=== PATIENT | male | born 1955 | race Caucasian/White ===

== ENCOUNTER 2022-03-02 20:40 | Observation (INO) ==
[2022-03-02] MEDS ORDERED: MoRPHine SULFATE 4 MG/ML 1 ML CARP\\VIAL IV STA (20:51)
--- NOTE | 2022-03-02 20:58 | Emergency Department Note ---
Impression & Plan Chest pain, Headache ED Provider Note NAME: GRISELDA [id number] CHAU AGE: 66 SEX: M : 1955 ARRIVES VIA: Ambulance INFORMANT: Patient, EMS ED PROVIDER(S): Otto Bhatt DO CHIEF COMPLAINT: Chest pain HPI: The patient is a 66-year-old male who presented to the emergency department for an evaluation of chest pain. The patient has a history of coronary artery disease. He was seen in our facility for similar complaints. In December of this year he was taken to [facility]. At that time he did have a stent placed for coronary artery disease with occlusion. The patient does have a history of coronary bypass. He had chest pain yesterday. He started having worsening of his discomfort throughout the day today. He started noticing worsening with exertion. He also noticed nausea and a nonproductive cough. He also has had a headache. He states the symptoms have been ongoing since earlier today. He was given aspirin and nitroglycerin prior to arrival. He was also given Zofran. He states his symptoms are already mildly improved. He denies having any fever. ROS: See above HPI for pertinent positives & negatives. A total of 10 systems reviewed and were otherwise negative. PAST MEDICAL HISTORY: See Below PAST SURGICAL HISTORY: See Below FAMILY HISTORY: See Below SOCIAL HISTORY: See Below HOME MEDICATIONS: See Below ALLERGIES: See Below VITALS: See Below PHYSICAL EXAMINATION: GENERAL: Patient is awake alert in no acute distress patient is resting comfortably and showing no signs of anxiety EYES: The conjunctivae are clear. The pupils are round and reactive. EARS, NOSE, MOUTH AND THROAT: The nose is without any evidence of any deformity. NECK: The neck is nontender and supple. RESPIRATORY: Normal respiratory effort is noted there is no evidence of wheezing rhonchi or rales CARDIOVASCULAR: Regular rate and rhythm noted there no murmurs rubs or gallops normal S1 normal S2. GASTROINTESTINAL: The abdomen is soft. Abdomen is nontender. MUSCULOSKELETAL/EXTREMITIES: There is no evidence of gross deformity full range of motion is noted in the hips and shoulders. SKIN: There is no obvious evidence of any rash. There are no petechiae, pallor or cyanosis noted. NEUROLOGIC: Patient is awake alert and oriented x3 MEDICAL DECISION MAKING: The patient is a 66-year-old male who presented to the emergency department for an evaluation of chest discomfort. The patient has a history of coronary artery disease. He has a history of coronary artery bypass. He was seen in our facility at the end of December. At that time he was diagnosed with coronary artery disease and had a stent placed. He had return of pain yesterday which was brief but then return of pain today that did not resolve after the usual regiment of nitroglycerin. He was given aspirin and nitroglycerin prior to arrival. He was reevaluated multiple times. I discussed the patient's laboratory and radiographic studies with him. I also discussed the limitations of the emergency department work-up for chest pain with him. Ultimately I did discuss his case with the on-call [facility] hospitalist. They have agreed to evaluate the patient in the emergency department for further management and disposition. Triage Nursing notes reviewed. Prior medical records reviewed Vital Signs: reviewed and remarkable for no significant abnormalities Differential diagnosis: Cardiac ischemia, aortic dissection, pulmonary embolism, pneumothorax, pneumonia, pericarditis, myocarditis, esophageal rupture, GERD, cholecystitis, pancreatitis, musculoskeletal, as well as other pathologies. ER treatment provided: See below Diagnostics interpreted by me: ECG: EKG was obtained in the emergency department. My interpretation is sinus rhythm at 72 bpm. PACs were noted. There is no acute ST segment abnormalities noted. This was compared to a tracing from January 26, 2022. The ectopy is new otherwise no significant changes were noted. Cardiac Monitoring: An order was placed for continuous cardiac monitoring. The monitor shows a rate of 67 bpm with sinus rhythm. Laboratory studies: As stated above and show below. Imaging studies: See below Consultation(s): Dr. 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 LAD: mid vessel 100% occlusion. D1: patent. LCx: ostial 100% occlusion. RCA: proximal to mid vessel stents patent. Mild to moderate in stent restenosis similar to 2013 catheterization. SVG-OM-LCx: patent. Mild stenosis at LCx anastamosis and Moderate disease at ostial OM2 off LCx, but both <2mm diameter vessels. SVG-RPDA: patent. stents patent. ARAIZA-LAD: patent. " Hx of cholecystectomy Social History Smoking Status: Unknown if ever smoked Hx Alcohol Use: No Hx Substance Use: Yes Last Used Substance Other:: years ago Preferred Language: Israeli Communication Ability: Effective Director Of Psychiatry Required: No Beliefs That Will Affect Care: None Current Living Situation: Other Current Living Situation Comment: Alf Feels Safe at Home: Yes Assistive Devices: Cane and Denture - Upper Allergies Allergies Allergy/AdvReac Type Severity Reaction Status Date / Time Fish Containing Products AdvReac Intermediate VOMITING Verified 03/02/22 22:44 onion AdvReac Intermediate VOMITING Verified 03/02/22 22:44 tomato AdvReac Intermediate VOMITING Verified 03/02/22 22:44 Food AdvReac Intermediate ALLERGIC Uncoded 03/02/22 22:44 TO [place], CAUSES VOMITING Home Meds Home Medications Medication Instructions Recorded Confirmed aspirin 81 mg tablet,delayed 81 mg PO DAILY 01/05/22 03/02/22 release atorvastatin 40 mg tablet 40 mg PO QPM 01/05/22 03/02/22 buspirone 10 mg tablet 20 mg PO HS 01/05/22 03/02/22 ciclesonide 160 mcg/actuation 1 puff inhalation BID 01/05/22 03/02/22 aerosol inhaler (Alvesco) clopidogrel 75 mg tablet 75 mg PO DAILY 01/05/22 03/02/22 finasteride 5 mg tablet 5 mg PO DAILY 01/05/22 03/02/22 lisinopril 40 mg tablet 40 mg PO DAILY 01/05/22 03/02/22 nitroglycerin 0.4 mg sublingual 0.4 mg sublingual Q5M PRN Chest 01/05/22 03/02/22 tablet Pain isosorbide mononitrate 60 mg 60 mg PO DAILY 03/02/22 03/02/22 tablet,extended release 24 hr metoprolol tartrate 25 mg tablet 12.5 mg PO DAILY 03/02/22 03/02/22 Results & Data (ED) Vital Signs Vital Signs - 24 hr 03/02/22 21:08 03/02/22 21:08 03/02/22 21:53 Temperature 36.8 C Temperature Source Oral Pulse Rate Pulse Rate [Finger] 84 68 Pulse Rate from SpO2 Sensor Pulse Rhythm [Finger] Regular Regular Pulse Strength [Finger] Normal Normal Respiratory Rate 14 20 Respiratory Effort / Characteristics Non-Labored Non-Labored Respiratory Depth Normal Normal Respiratory Pattern Regular Blood Pressure Blood Pressure [Right Arm] 92/48 L 125/54 L Blood Pressure Mean Blood Pressure Mean [Right Arm] 62 77 Blood Pressure Position [Right Arm] Sitting Pulse Oximetry 97 96 Oxygen Delivery Method Room Air Room Air Sepsis Recent Fever Within 48 Hours No Sepsis New/Unexplained Change in Mental Status N/A Sepsis Action Taken by Nursing No Action Required 03/02/22 20:54 03/02/22 20:55 03/02/22 21:00 Temperature Temperature Source Pulse Rate 70 65 Pulse Rate [Finger] Pulse Rate from SpO2 Sensor 69 68 Pulse Rhythm [Finger] Pulse Strength [Finger] Respiratory Rate 23 19 Respiratory Effort / Characteristics Respiratory Depth Respiratory Pattern Blood Pressure 92/48 L Blood Pressure [Right Arm] Blood Pressure Mean 62 Blood Pressure Mean [Right Arm] Blood Pressure Position [Right Arm] Pulse Oximetry 95 94 Oxygen Delivery Method Sepsis Recent Fever Within 48 Hours Sepsis New/Unexplained Change in Mental Status Sepsis Action Taken by Nursing 03/02/22 21:30 03/02/22 21:55 03/02/22 21:55 Temperature Temperature Source Pulse Rate 76 71 Pulse Rate [Finger] Pulse Rate from SpO2 Sensor 75 71 Pulse Rhythm [Finger] Pulse Strength [Finger] Respiratory Rate 21 16 Respiratory Effort / Characteristics Respiratory Depth Respiratory Pattern Blood Pressure 125/54 L Blood Pressure [Right Arm] Blood Pressure Mean 77 Blood Pressure Mean [Right Arm] Blood Pressure Position [Right Arm] Pulse Oximetry 95 96 Oxygen Delivery Method Sepsis Recent Fever Within 48 Hours Sepsis New/Unexplained Change in Mental Status Sepsis Action Taken by Nursing 03/02/22 22:00 Temperature Temperature Source Pulse Rate 67 Pulse Rate [Finger] Pulse Rate from SpO2 Sensor 68 Pulse Rhythm [Finger] Pulse Strength [Finger] Respiratory Rate 20 Respiratory Effort / Characteristics Respiratory Depth Respiratory Pattern Blood Pressure Blood Pressure [Right Arm] Blood Pressure Mean Blood Pressure Mean [Right Arm] Blood Pressure Position [Right Arm] Pulse Oximetry 95 Oxygen Delivery Method Sepsis Recent Fever Within 48 Hours Sepsis New/Unexplained Change in Mental Status Sepsis Action Taken by [facility] Medications Current Medication List: was personally reviewed by me Laboratory Data Attestation: I reviewed the patient's lab results. Result diagrams: 03/02/22 20:58 03/02/22 20:58 Lab Results 03/02/22 03/02/22 Range/Units 20:58 20:58 WBC 12.61 H (4.8-10.8) K/ul RBC 3.83 L (4.63-6.08) M/uL Hgb 12.0 L (14.0-18.0) g/dl Hct 34.9 L (40.1-51.0) % MCV 91.1 (80.0-100.0) fL MCH 31.3 (25.0-34.0) pg MCHC 34.4 (32.0-36.0) g/dL RDW Std Deviation 41.0 (36.4-46.3) fL RDW Coeff of Bay 12.4 (11.5-14.5) % Plt Count 162 (130-400) K/uL MPV 9.6 (9.4-12.4) fL Immature Gran % (Auto) 0.6 % Neut % (Auto) 83.8 % Lymph % (Auto) 8.0 % [place] % (Auto) 6.8 % Eos % (Auto) 0.3 % Baso % (Auto) 0.5 % Neut # (Auto) 10.57 H (1.4-6.5) K/uL Lymph # (Auto) 1.01 L (1.2-3.4) K/uL [place] # (Auto) 0.86 H (0.24-0.82) K/uL Eos # (Auto) 0.04 (0-0.50) K/uL Baso # (Auto) 0.06 (0-0.2) K/uL Immature Gran # (Auto) 0.07 H (0.00-0.02) K/uL Sodium 135 L (136-145) mmol/L Potassium 3.8 (3.5-5.1) mmol/L Chloride 104 (98-107) mmol/L Carbon Dioxide 24 (21-32) mmol/L Anion Gap 7 (3-11) BUN 17 (6-23) mg/dl Creatinine 1.00 (0.6-1.4) mg/dl Est Cr Clr Drug Dosing 73.0 ml/min Est GFR ( Amer) 89.9 ml/min Est GFR (Non-Af Amer) 77.5 ml/min BUN/Creatinine Ratio 17.0 (10-20) Glucose 108 H (70-99(Fasting)) mg/dl Calcium 8.3 L (8.5-10.1) mg/dl Total Bilirubin 1.2 H (0.2-1.0) mg/dl AST 12 L (13-39) U/L ALT 10 (7-52) U/L Alkaline Phosphatase 98 (34-104) U/L Troponin I High Sens 14.3 (0-20) pg/ml Total Protein 6.8 (6.0-8.3) gm/dl Albumin 3.8 (3.4-5.0) gm/dl Globulin 3.0 (2.5-4.0) gm/dl Albumin/Globulin Ratio 1.3 (0.9-2) Lipase 22 (11-82) U/L Administered Medications Discontinued Medications Morphine Sulfate (Morphine Sulfate 4 Mg/Ml 1 Ml Carp\\Vial) 4 mg IV NOW STA Stop: 03/02/22 20:52 Last Admin: 03/02/22 21:05 Dose: 4 mg Documented By: ALAN Imaging Data Attestation: I personally reviewed and interpreted this imaging study as follows: My Impression: 1 view chest x-ray was obtained in the emergency department. My interpretation is no acute disease, cardiomegaly, no definite filtrate. Radiologist's Impression: Patient: GRISELDA RITCHIE [id number] (Male) : 53 Status: ER Date: 03/02/22 21:16 Room #: History: PT. REPORTS SEVERE HEADACHE FOR THE LAST FEW DAYS Slices: 66 Priors: Tech: MarleyNeeln @ [phone] Exams: CT HEAD Contrast: Accession Numbers: [id number] Referring Physician: OTTO BHATT Preliminary Findings Only See Final Report For Complete Findings CT HEAD: No intracranial hemorrhage. No hydrocephalus. Chronic appearing lacunar infarct within the right centrum semi-ovale. Small amount of fluid within the frontal and ethmoid sinuses. Mastoid air cells are clear. Radiologist: Roby Camacho MD Study ready at 21:19 and initial results transmitted at 21:39 Discharge Plan Visit Data Chief Complaint: Chest Pain ED Provider: Otto Bhatt Discharge Problem: Chest pain, Headache Patient Disposition: Being Evaluated by Hospitalist Forms Stand Alone Forms: My [facility] Prescriptions Prescriptions: No Action Alvesco 160 mcg/actuation HFA aerosol inhaler 1 puff inhalation BID aspirin 81 mg tablet,delayed release (DR/EC) 81 mg PO DAILY atorvastatin 40 mg tablet 40 mg PO QPM buspirone 10 mg tablet 20 mg PO HS clopidogrel 75 mg tablet 75 mg PO DAILY finasteride 5 mg tablet 5 mg PO DAILY lisinopril 40 mg tablet 40 mg PO DAILY nitroglycerin 0.4 mg tablet, sublingual 0.4 mg sublingual Q5M PRN (Reason: Chest Pain) Rx Instructions: do not exceed 3 doses per episode isosorbide mononitrate 60 mg Tablet Extended Release 24 Hr 60 mg PO DAILY metoprolol tartrate 25 mg Tablet 12.5 mg PO DAILY Referrals Referrals: Batool COREA [Primary Care Provider] - : Chest pain Qualifiers: Chest pain type: unspecified Qualified Code(s): R07.9 - Chest pain, unspecified Headache Qualifiers: Headache type: unspecified Headache chronicity pattern: unspecified pattern Intractability: not intractable Qualified Code(s): R51.9 - Headache, unspecified
[2022-03-02 21:10] LABS: Basophils # (auto) 0.06 K/uL (0-0.2); Basophils % (auto) 0.5 %; Eosinophils # (auto) 0.04 K/uL (0-0.50); Eosinophils % (auto) 0.3 %; Hematocrit (blood only) 34.9 % (40.1-51.0); Immature Granulocytes # (auto) 0.07 K/uL (0.00-0.02); Immature Granulocytes % (auto) 0.6 %; Lymphocytes # (auto) 1.01 K/uL (1.2-3.4); Mean Corpuscular Hemoglobin 31.3 pg (25.0-34.0); Mean Corpuscular Hgb Conc 34.4 g/dL (32.0-36.0); Mean Corpuscular Volume 91.1 fL (80.0-100.0); Mean Platelet Volume 9.6 fL (9.4-12.4); Monocytes # (auto) 0.86 K/uL (0.24-0.82); Monocytes % (auto) 6.8 %; Neutrophils # (auto) 10.57 K/uL (1.4-6.5); Neutrophils % (auto) 83.8 %; Platelet Count 162 K/uL (130-400); RDW Coefficient of Variation 12.4 % (11.5-14.5); Red Blood Count 3.83 M/uL (4.63-6.08); White Blood Count 12.61 K/ul (4.8-10.8)
[2022-03-02 21:36] LABS: Albumin Globulin Ratio 1.3 (0.9-2); Albumin Level 3.8 gm/dl (3.4-5.0); Bilirubin,Total 1.2 mg/dl (0.2-1.0); Calcium 8.3 mg/dl (8.5-10.1); Est GFR (African American) 89.9 ml/min; Est GFR (Non-African American) 77.5 ml/min; Potassium 3.8 mmol/L (3.5-5.1); Total Protein 6.8 gm/dl (6.0-8.3)
[2022-03-02 21:37] LABS: Troponin I High Sensitivity 14.3 pg/ml (0-20)
[2022-03-02] MEDS ORDERED: ALUMINUM/MAGNESIUM SUSP 30 ML UDC PO STA (22:51)
--- NOTE | 2022-03-03 00:57 | History & Physical Report ---
Date of Service March 03, 2022 Assessment & Plan (1) Chest pain: Plan: Chest pain/CAD/hypertension/status post CABG/status post stented coronary artery- The patient will be admitted to telemetry for serial cardiac enzymes, serial EKG's, cardiac rhythm monitoring and a 2-D echocardiogram with Dopplers. Continue aspirin 81 mg daily, clopidogrel 75 mg daily, isosorbide mononitrate 60 mg daily, lisinopril 40 mg daily, metoprolol tartrate 12.5 mg p.o. daily and nitroglycerin sublingual as as needed Consult cardiology Dr. Morales (2) Coronary artery disease: Plan: See above (3) Hypertension: Plan: See above (4) Hyperlipidemia: Plan: Continue atorvastatin 40 mg every evening History of Present Illness Chief Complaint: The patient presents to the emergency department with complaint of chest pain that began earlier in the day today, unrelieved by nitroglycerin sublingual's x2 Primary Care Provider: ANMOL Renae The patient is a 66-year-old male with a past medical history including CAD, recent stent placement on 01/26/2022, recurrent angina status post CABG, prostate cancer, hyperlipidemia, hypertension, MRSA and nonsustained V. tach. He reports that his chest pain was not significantly improved by nitroglycerin sublingual's at the residential, but did have improvement in the emergency department this yair luna. Allergies Allergy/AdvReac Type Severity Reaction Status Date / Time Fish Containing Products AdvReac Intermediate VOMITING Verified 03/02/22 22:44 onion AdvReac Intermediate VOMITING Verified 03/02/22 22:44 tomato AdvReac Intermediate VOMITING Verified 03/02/22 22:44 Food AdvReac Intermediate ALLERGIC Uncoded 03/02/22 22:44 TO [place], CAUSES VOMITING Home Medications Medication Instructions Recorded Confirmed Type aspirin 81 mg tablet,delayed 81 mg PO DAILY 01/05/22 03/02/22 History release atorvastatin 40 mg tablet 40 mg PO QPM 01/05/22 03/02/22 History buspirone 10 mg tablet 20 mg PO HS 01/05/22 03/02/22 History ciclesonide 160 mcg/actuation 1 puff inhalation BID 01/05/22 03/02/22 History aerosol inhaler (Alvesco) clopidogrel 75 mg tablet 75 mg PO DAILY 01/05/22 03/02/22 History finasteride 5 mg tablet 5 mg PO DAILY 01/05/22 03/02/22 History lisinopril 40 mg tablet 40 mg PO DAILY 01/05/22 03/02/22 History nitroglycerin 0.4 mg sublingual 0.4 mg sublingual Q5M PRN Chest 01/05/22 03/02/22 History tablet Pain isosorbide mononitrate 60 mg 60 mg PO DAILY 03/02/22 03/02/22 History tablet,extended release 24 hr metoprolol tartrate 25 mg tablet 12.5 mg PO DAILY 03/02/22 03/02/22 History Past Med/Surg History Medical History Coronary artery disease "CABG 1999: ARAIZA-LAD, SVG-RPDA, SVG-LCx PCI SVG-RPLB 2002 PCI with BMS SVG-RPLB (in SVG) 05/2013 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 LAD: mid vessel 100% occlusion. D1: patent. LCx: ostial 100% occlusion. RCA: proximal to mid vessel stents patent. Mild to moderate in stent restenosis similar to 2013 catheterization. SVG-OM-LCx: patent. Mild stenosis at LCx anastamosis and Moderate disease at ostial OM2 off LCx, but both <2mm diameter vessels. SVG-RPDA: patent. stents patent. ARAIZA-LAD: patent. " Hx of cholecystectomy Social History Smoking Status: Unknown if ever smoked Hx Alcohol Use: No Hx Substance Use: Yes Last Used Substance Other:: years ago Preferred Language: Indian Communication Ability: Effective Statement Distribution Clerk Required: No Beliefs That Will Affect Care: None Current Living Situation: Other Current Living Situation Comment: Longterm Feels Safe at Home: Yes Assistive Devices: Cane and Denture - Upper Review of Systems Review of Systems: The patient denies palpitations, shortness of breath, dyspnea on exertion, cough, lower extremity swelling, sore throat, fevers, chills, sweats, weight change, fatigue, nausea, vomiting, diarrhea , constipation, abdominal pain, pelvic pain, blood in urine or stool, dysuria, urinary frequency or urgency, lightheadedness, dizziness, headache, memory loss, loss of consciousness, rash, abnormal bruising or bleeding, imbalance, focal or generalized weakness, numbness or tingling in arms or legs, generalized arthralgias or myalgias, back or neck pain, or night sweats. The review of systems is otherwise negative other than for that already noted above, and at least 10 systems have been reviewed. Physical Exam Physical Exam: The patient is awake, alert and oriented 3, well developed and well nourished, normocephalic and atraumatic, lying in bed and in no acute distress. HEENT--PERRL, EOMI, mucous membranes and oropharynx dry. Neck--supple. No JVD. No bruits. Thyroid normal, trachea midline, no adenopathy. Heart--normal S1 and S2. No murmurs, rubs or gallops. Lungs--clear bilaterally, no respiratory distress, no accessory muscle use. Abdomen--normal bowel sounds and soft. Nontender. Nondistended, no hernias or masses, no organomegaly. Extremities--no cyanosis or clubbing. No edema. Dermatologic--normal skin turgor, normal color, no abnormal lymph nodes, no rash. Neurologic--cranial nerves II through XII grossly intact. Rheumatologic--normal range of motion. Psychiatric--normal affect. Results & Data Results & Data ([facility]) Vital Signs (Past 12 Hours) Vital Signs Temp Pulse Pulse Resp BP BP Pulse Ox 03/02/22 22:00 67 20 95 03/02/22 21:55 71 16 96 03/02/22 21:55 125/54 L 03/02/22 21:30 76 21 95 03/02/22 21:00 65 19 94 03/02/22 20:55 70 23 95 03/02/22 20:54 92/48 L 03/02/22 21:53 68 20 125/54 L 96 03/02/22 21:08 36.8 C 84 14 92/48 L 97 O2 Del Method 03/02/22 22:00 03/02/22 21:55 03/02/22 21:55 03/02/22 21:30 03/02/22 21:00 03/02/22 20:55 03/02/22 20:54 03/02/22 21:53 Room Air 03/02/22 21:08 Room Air Laboratory Results Laboratory Results WBC 12.61 K/ul (4.8-10.8) H 03/02/22 20:58 RBC 3.83 M/uL (4.63-6.08) L 03/02/22 20:58 Hgb 12.0 g/dl (14.0-18.0) L 03/02/22 20:58 Hct 34.9 % (40.1-51.0) L 03/02/22 20:58 MCV 91.1 fL (80.0-100.0) 03/02/22 20:58 MCH 31.3 pg (25.0-34.0) 03/02/22 20:58 MCHC 34.4 g/dL (32.0-36.0) 03/02/22 20:58 RDW Std Deviation 41.0 fL (36.4-46.3) 03/02/22 20:58 RDW Coeff of Bay 12.4 % (11.5-14.5) 03/02/22 20:58 Plt Count 162 K/uL (130-400) 03/02/22 20:58 MPV 9.6 fL (9.4-12.4) 03/02/22 20:58 Immature Gran % (Auto) 0.6 % 03/02/22 20:58 Neut % (Auto) 83.8 % 03/02/22 20:58 Lymph % (Auto) 8.0 % 03/02/22 20:58 [place] % (Auto) 6.8 % 03/02/22 20:58 Eos % (Auto) 0.3 % 03/02/22 20:58 Baso % (Auto) 0.5 % 03/02/22 20:58 Neut # (Auto) 10.57 K/uL (1.4-6.5) H 03/02/22 20:58 Lymph # (Auto) 1.01 K/uL (1.2-3.4) L 03/02/22 20:58 [place] # (Auto) 0.86 K/uL (0.24-0.82) H 03/02/22 20:58 Eos # (Auto) 0.04 K/uL (0-0.50) 03/02/22 20:58 Baso # (Auto) 0.06 K/uL (0-0.2) 03/02/22 20:58 Immature Gran # (Auto) 0.07 K/uL (0.00-0.02) H 03/02/22 20:58 Sodium 135 mmol/L (136-145) L 03/02/22 20:58 Potassium 3.8 mmol/L (3.5-5.1) 03/02/22 20:58 Chloride 104 mmol/L (98-107) 03/02/22 20:58 Carbon Dioxide 24 mmol/L (21-32) 03/02/22 20:58 Anion Gap 7 (3-11) 03/02/22 20:58 BUN 17 mg/dl (6-23) 03/02/22 20:58 Creatinine 1.00 mg/dl (0.6-1.4) 03/02/22 20:58 Est Cr Clr Drug Dosing 73.0 ml/min 03/02/22 20:58 Est GFR ( Amer) 89.9 ml/min 03/02/22 20:58 Est GFR (Non-Af Amer) 77.5 ml/min 03/02/22 20:58 BUN/Creatinine Ratio 17.0 (10-20) 03/02/22 20:58 Glucose 108 mg/dl (70-99(Fasting)) H 03/02/22 20:58 Calcium 8.3 mg/dl (8.5-10.1) L 03/02/22 20:58 Total Bilirubin 1.2 mg/dl (0.2-1.0) H 03/02/22 20:58 AST 12 U/L (13-39) L 03/02/22 20:58 ALT 10 U/L (7-52) 03/02/22 20:58 Alkaline Phosphatase 98 U/L (34-104) 03/02/22 20:58 Troponin I High Sens 14.3 pg/ml (0-20) 03/02/22 20:58 Total Protein 6.8 gm/dl (6.0-8.3) 03/02/22 20:58 Albumin 3.8 gm/dl (3.4-5.0) 03/02/22 20:58 Globulin 3.0 gm/dl (2.5-4.0) 03/02/22 20:58 Albumin/Globulin Ratio 1.3 (0.9-2) 03/02/22 20:58 Lipase 22 U/L (11-82) 03/02/22 20:58 SARS-CoV-2, RNA, NAAT NEGATIVE (NEGATIVE) 03/02/22 23:25 Code Status & VTE Plan Code Status Full code VTE Prophylaxis Plan VTE Prophylaxis will be ordered: Yes PG Care Time/CCT Total # of Minutes Spent Total Time Spent with Patient: Total time spent is greater than 50% in coordination of care (as documented) at patient's floor/unit and/or counseling patient: Coding Level of Care Code INT OBSERVATION CARE 70M LVL 3 Diagnoses Chest pain R07.9 Chest pain type: unspecified Coronary artery disease I25.10 Hypertension I10 Hyperlipidemia E78.5 (1) Chest pain Chest pain type: unspecified Qualified Code(s): R07.9 - Chest pain, unspecified
[2022-03-03] MEDS ORDERED: ACETAMINOPHEN 325 MG TAB PO PRN (02:55)
[2022-03-03] MEDS ORDERED: ONDANSETRON INJ 2 MG/ML 2 ML VIAL IV PRN (02:55)
[2022-03-03] MEDS ORDERED: NITROGLYCERIN SL 0.4 MG/TAB TAB SL PRN (02:55)
[2022-03-03 06:46] LABS: Basophils # (auto) 0.04 K/uL (0-0.2); Basophils % (auto) 0.5 %; Eosinophils # (auto) 0.02 K/uL (0-0.50); Eosinophils % (auto) 0.2 %; Hematocrit (blood only) 34.4 % (40.1-51.0); Hemoglobin 11.6 g/dl (14.0-18.0); Immature Granulocytes # (auto) 0.02 K/uL (0.00-0.02); Immature Granulocytes % (auto) 0.2 %; Lymphocytes # (auto) 1.28 K/uL (1.2-3.4); Lymphocytes % (auto) 15.9 %; Mean Corpuscular Hemoglobin 31.3 pg (25.0-34.0); Mean Corpuscular Hgb Conc 33.7 g/dL (32.0-36.0); Mean Corpuscular Volume 92.7 fL (80.0-100.0); Mean Platelet Volume 9.7 fL (9.4-12.4); Monocytes # (auto) 0.77 K/uL (0.24-0.82); Monocytes % (auto) 9.6 %; Neutrophils # (auto) 5.93 K/uL (1.4-6.5); Neutrophils % (auto) 73.6 %; Platelet Count 145 K/uL (130-400); RDW Coefficient of Variation 12.6 % (11.5-14.5); RDW Standard Deviation 42.8 fL (36.4-46.3); Red Blood Count 3.71 M/uL (4.63-6.08); White Blood Count 8.06 K/ul (4.8-10.8)
[2022-03-03 07:14] LABS: Albumin Globulin Ratio 1.3 (0.9-2); Albumin Level 3.5 gm/dl (3.4-5.0); BUN Creatinine Ratio 15.5 (10-20); Bilirubin,Total 1.4 mg/dl (0.2-1.0); Calcium 7.9 mg/dl (8.5-10.1); Creatinine Clr Calc Pharmacy 66.4 ml/min; Est GFR (African American) 80.1 ml/min; Est GFR (Non-African American) 69.1 ml/min; Globulin 2.8 gm/dl (2.5-4.0); Potassium 3.6 mmol/L (3.5-5.1); Total Protein 6.3 gm/dl (6.0-8.3)
--- NOTE | 2022-03-03 07:36 | CT Scan Report ---
HEAD CT NONCONTRAST CT DOSE: 614.27 mGy.cm HISTORY: headache TECHNIQUE: Multiaxial CT images of the head were performed without the use of intravenous contrast. A utomated exposure control was utilized for this study. A dose lowering technique was utilized adheri ng to the principles of ALARA. Comparison: Head CT 03/12/2015. Findings: Mild mucosal thickening within the ethmoid air cells, unchanged. The mastoid air cells are clear. The calvarium and skull base are intact. The ventricles and sulci are within normal limits. Th ere is no mass, hematoma, midline shift, or acute infarct. There is an old small right periventricula r infarct, unchanged. Impression: No significant change compared to the prior study. No acute intracranial abnormality. ACT 112: Negative or not required by law. Electronically signed by: Mehdi Escobedo M.D. 03/03/2022 7:35 AM
--- NOTE | 2022-03-03 08:28 | Communication Note ---
Date of Service: March 03, 2022
--- NOTE | 2022-03-03 08:32 | XRay Report ---
XR chest 1V portable CLINICAL HISTORY: Atypical chest pain. COMPARISON STUDY: Chest radiograph and chest CT January 14, 2017. FINDINGS: Median sternotomy wires and mediastinal surgical clips are noted. Cardiomegaly is unchanged . No evidence for pulmonary edema. No consolidation to suggest pneumonia. No pneumothorax or pleural effusion is present. Emphysema is better depicted on prior chest CT. IMPRESSION: No acute cardiopulmonary findings. No change in appearance of the chest. ACT 112: Negative or not required by law. Electronically signed by: Edmundo Hanson M.D. 03/03/2022 8:30 AM
[2022-03-03] MEDS ORDERED: FINASTERIDE 5 MG TAB PO SCH (09:00)
[2022-03-03] MEDS ORDERED: ISOSORBIDE MONO EXTENDED REL 60 MG TABCR PO SCH (09:00)
[2022-03-03] MEDS ORDERED: FLUTICASONE FUROATE 100MCG 14 PUFFS/INHALER INH SCH (09:00)
[2022-03-03] MEDS ORDERED: METOPROLOL TARTRATE 25 MG TAB PO SCH (09:00)
[2022-03-03] MEDS ORDERED: CLOPIDOGREL BISULFATE 75 MG TAB PO SCH (09:00)
[2022-03-03] MEDS ORDERED: ASPIRIN 81 MG ECTAB PO SCH (09:00)
[2022-03-03] MEDS ORDERED: lisinopril 40 MG TAB PO SCH (09:00)
--- NOTE | 2022-03-03 11:02 | Cardiology Consultation ---
Date of Consultation March 03, 2022 Assessment & Plan (1) Chest pain: (2) Coronary artery disease: Plan 1. Chest pain: His description of symptoms is certainly concerning for recurrent angina. However, he had a prolonged episode of discomfort without any rise in cardiac biomarkers. Therefore, this does not seem to represent coronary insufficiency or ischemia. He resolved with some narcotics eventually. No recurrence. Similar symptoms did resolve after recent percutaneous intervention of his vein graft. I suppose it is possible that he has multiple allergies for his chest discomfort. At this point I would not advocate any change in his medical therapy or any additional ischemic evaluation. 2. Coronary disease: Long history of coronary artery disease and multiple interventions mainly involving the vein graft to the posterolateral branch. Possible this territory is infarcted. There may be some bertha-infarct ischemia which produces symptoms at times. Nonetheless, he should continue aggressive secondary prevention which currently includes aspirin, high-dose atorvastatin and clopidogrel. With his history of myocardial infarction he should continue metoprolol. Higher doses have been tried previously which resulted in symptoms and bradycardia. History of Present Illness Reason for Consultation: Chest pain Requesting Physician: Sydney Attending Physician: Michael Shah DO History of Present Illness The patient is a 66-year-old gentleman with an extensive history of coronary disease having previously undergone surgical revascularization in 1999 as well as multiple percutaneous interventions including stenting of a vein graft to the PDA at our facility in late December of this year. Leading up to that intervention the patient had been having symptoms of exertional chest discomfort for few months. This occurred at rest and with exertion and was often relieved by nitroglycerin. He states that since his most recent intervention he has not had his symptoms of chest, jaw all or arm discomfort. He has been more active in actually walking in the yd. Several days ago the patient began to experience a significant headache. This did not resolve and yesterday he had some nausea and vomiting. He claims to have subjective fevers and chills and eventually developed some form of substernal chest discomfort with his typical radiation to jaw and arm. This lasted several hours and was unresponsive to nitroglycerin administered at the facility. EMS was eventually called in in route the patient was administered morphine and nitroglycerin which improved his symptoms. Additional interventions in the emergency room eventually resolved his symptoms. This morning he is feeling well. He does not have a headache, nausea or chest pain. Allergies Allergy/AdvReac Type Severity Reaction Status Date / Time Fish Containing Products AdvReac Intermediate VOMITING Verified 03/02/22 22:44 onion AdvReac Intermediate VOMITING Verified 03/02/22 22:44 tomato AdvReac Intermediate VOMITING Verified 03/02/22 22:44 Food AdvReac Intermediate ALLERGIC Uncoded 03/02/22 22:44 TO [place], CAUSES VOMITING Home Medications Medication Instructions Recorded Confirmed Type aspirin 81 mg tablet,delayed 81 mg PO DAILY 01/05/22 03/02/22 History release atorvastatin 40 mg tablet 40 mg PO QPM 01/05/22 03/02/22 History buspirone 10 mg tablet 20 mg PO HS 01/05/22 03/02/22 History ciclesonide 160 mcg/actuation 1 puff inhalation BID 01/05/22 03/02/22 History aerosol inhaler (Alvesco) clopidogrel 75 mg tablet 75 mg PO DAILY 01/05/22 03/02/22 History finasteride 5 mg tablet 5 mg PO DAILY 01/05/22 03/02/22 History lisinopril 40 mg tablet 40 mg PO DAILY 01/05/22 03/02/22 History nitroglycerin 0.4 mg sublingual 0.4 mg sublingual Q5M PRN Chest 01/05/22 03/02/22 History tablet Pain isosorbide mononitrate 60 mg 60 mg PO DAILY 03/02/22 03/02/22 History tablet,extended release 24 hr metoprolol tartrate 25 mg tablet 12.5 mg PO DAILY 03/02/22 03/02/22 History Patient History Medical History Coronary artery disease "CABG 1999: ARAIZA-LAD, SVG-RPDA, SVG-LCx PCI SVG-RPLB 2002 PCI with BMS SVG-RPLB (in SVG) 05/2013 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 LAD: mid vessel 100% occlusion. D1: patent. LCx: ostial 100% occlusion. RCA: proximal to mid vessel stents patent. Mild to moderate in stent restenosis similar to 2013 catheterization. SVG-OM-LCx: patent. Mild stenosis at LCx anastamosis and Moderate disease at ostial OM2 off LCx, but both <2mm diameter vessels. SVG-RPDA: patent. stents patent. ARIAZA-LAD: patent. " Hx of cholecystectomy Social History Smoking Status: Former smoker Hx Alcohol Use: Yes (previous) Hx Substance Use: Yes (pt reports former use as a young adult) Last Used Substance Other:: years ago Preferred Language: Korean Communication Ability: Effective Armorer Technician Required: No Beliefs That Will Affect Care: None Current Living Situation: Other Current Living Situation Comment: Long-Term Feels Safe at Home: Yes Safety Concerns: Feels Safe At This Time Assistive Devices: Denture - Upper and Glasses Review of Systems Review of Systems: Per HPI. Recently he has been ambulatory without symptoms. No limiting dyspnea. No orthopnea. Physical Exam Physical Exam: The patient is alert and oriented. Mood and affect appeared normal. He answered all questions appropriately. HEENT: Pupils are equal and reactive to light and accommodation. Extraocular movements are intact. The sclerae are anicteric. Neuro: Cranial nerves intact Chest: Well-healed sternotomy scar Lungs: Clear to auscultation bilaterally. He has good air movement without use of accessory muscles. No rales wheezes or rhonchi. Cardiac: Heart demonstrates a regular rate and rhythm. Normal S1 and S2. No murmurs on examination. Pulses: The patient has palpable radial pulses bilaterally that are equal in i ntensity Extremities: There was no evidence of hypoperfusion. There is no cyanosis or clubbing. There is no edema. Skin: I did not appreciate any rashes on examination today. Results & Data ([facility]) Vital Signs (Past 12 Hours) Vital Signs Temp Pulse Pulse Resp BP BP Pulse Ox 03/03/22 07:37 36.8 C 65 20 104/53 L 92 03/03/22 07:06 65 03/03/22 06:48 37 C 03/03/22 02:55 99 H 03/03/22 02:45 37.6 C H 87 20 159/73 H 94 03/03/22 02:29 84 14 121/74 96 O2 Del Method 03/03/22 07:37 Room Air 03/03/22 07:06 03/03/22 06:48 03/03/22 02:55 03/03/22 02:45 Room Air 03/03/22 02:29 Room Air Laboratory Results Abnormal Lab Results 03/02/22 03/02/22 03/02/22 20:58 20:58 23:25 WBC 12.61 H RBC 3.83 L Hgb 12.0 L Hct 34.9 L MCV 91.1 MCH 31.3 MCHC 34.4 RDW Std Deviation 41.0 RDW Coeff of Bay 12.4 Plt Count 162 MPV 9.6 Immature Gran % (Auto) 0.6 Neut % (Auto) 83.8 Lymph % (Auto) 8.0 Mckenzie % (Auto) 6.8 Eos % (Auto) 0.3 Baso % (Auto) 0.5 Neut # (Auto) 10.57 H Lymph # (Auto) 1.01 L Mckenzie # (Auto) 0.86 H Eos # (Auto) 0.04 Baso # (Auto) 0.06 Immature Gran # (Auto) 0.07 H Sodium 135 L Potassium 3.8 Chloride 104 Carbon Dioxide 24 Anion Gap 7 BUN 17 Creatinine 1.00 Est Cr Clr Drug Dosing 73.0 Est GFR ( Amer) 89.9 Est GFR (Non-Af Amer) 77.5 BUN/Creatinine Ratio 17.0 Glucose 108 H Calcium 8.3 L Total Bilirubin 1.2 H AST 12 L ALT 10 Alkaline Phosphatase 98 Troponin I High Sens 14.3 Total Protein 6.8 Albumin 3.8 Globulin 3.0 Albumin/Globulin Ratio 1.3 Lipase 22 Nasal Screen MRSA (PCR) SARS-CoV-2, RNA, NAAT NEGATIVE 03/03/22 03/03/22 03/03/22 04:00 05:54 05:54 WBC 8.06 RBC 3.71 L Hgb 11.6 L Hct 34.4 L MCV 92.7 MCH 31.3 MCHC 33.7 RDW Std Deviation 42.8 RDW Coeff of Bay 12.6 Plt Count 145 MPV 9.7 Immature Gran % (Auto) 0.2 Neut % (Auto) 73.6 Lymph % (Auto) 15.9 Mckenzie % (Auto) 9.6 Eos % (Auto) 0.2 Baso % (Auto) 0.5 Neut # (Auto) 5.93 Lymph # (Auto) 1.28 Mckenzie # (Auto) 0.77 Eos # (Auto) 0.02 Baso # (Auto) 0.04 Immature Gran # (Auto) 0.02 Sodium 135 L Potassium 3.6 Chloride 103 Carbon Dioxide 28 Anion Gap 4 BUN 17 Creatinine 1.10 Est Cr Clr Drug Dosing 66.4 Est GFR ( Amer) 80.1 Est GFR (Non-Af Amer) 69.1 BUN/Creatinine Ratio 15.5 Glucose 100 H Calcium 7.9 L Total Bilirubin 1.4 H AST 12 L ALT 10 Alkaline Phosphatase 90 Troponin I High Sens Total Protein 6.3 Albumin 3.5 Globulin 2.8 Albumin/Globulin Ratio 1.3 Lipase Nasal Screen MRSA (PCR) Negative SARS-CoV-2, RNA, NAAT 03/03/22 05:54 WBC RBC Hgb Hct MCV MCH MCHC RDW Std Deviation RDW Coeff of Bay Plt Count MPV Immature Gran % (Auto) Neut % (Auto) Lymph % (Auto) Mckenzie % (Auto) Eos % (Auto) Baso % (Auto) Neut # (Auto) Lymph # (Auto) Mckenzie # (Auto) Eos # (Auto) Baso # (Auto) Immature Gran # (Auto) Sodium Potassium Chloride Carbon Dioxide Anion Gap BUN Creatinine Est Cr Clr Drug Dosing Est GFR ( Amer) Est GFR (Non-Af Amer) BUN/Creatinine Ratio Glucose Calcium Total Bilirubin AST ALT Alkaline Phosphatase Troponin I High Sens 18.9 D Total Protein Albumin Globulin Albumin/Globulin Ratio Lipase Nasal Screen MRSA (PCR) SARS-CoV-2, RNA, NAAT Diagnostic Findings Head CT does not demonstrate any acute intracranial findings Chest x-ray the time admission did not reveal any acute cardiopulmonary disease Cardiac catheterization performed 01/26/2022 revealed diffuse left main disease, 95% mid LAD lesion with competitive flow, 100% occlusion of the circumflex and 100% distal chronic occlusion of the right coronary artery. Araiza to LAD and saphenous vein graft to the circumflex were widely patent. Saphenous vein graft to the right coronary artery had a focal 80 90% stenosis which was stented. Lexiscan perfusion study performed 02/06/2020: Scar in the circumflex distribution. Lateral wall hypokinesis with a gated ejection fraction of 55%. ECG Additional Comments: EKG obtained the time admission was normal sinus rhythm. No acute ST or T-wave changes. No evidence of old WA. PG Care Time/CCT Total # of Minutes Spent Total Time Spent with Patient: Total time spent is greater than 50% in coordination of care (as documented) at patient's floor/unit and/or counseling patient: Coding Level of Care Code INT OBSERVATION CARE 70M LVL 3 Diagnoses Chest pain R07.9 Chest pain type: unspecified Coronary artery disease I25.10 (1) Chest pain Chest pain type: unspecified Qualified Code(s): R07.9 - Chest pain, unspecified
--- NOTE | 2022-03-03 11:46 | Electrocardiogram Report ---
Test Reason : Blood Pressure : / mmHG Vent. Rate : 068 BPM Atrial Rate : 068 BPM P-R Int : 136 ms QRS Dur : 078 ms QT Int : 420 ms P-R-T Axes : -24 -13 070 degrees QTc Int : 446 ms Poor data quality, interpretation may be adversely affected Normal sinus rhythm Normal ECG When compared with ECG of 26-JAN-2022 11:43, Criteria for Inferior infarct are no longer Present Confirmed by Alex Medrano ([id number]) on 03/03/2022 11:45:58 AM Referred By: REFERRED SELF Confirmed By:Jose Medrano
--- NOTE | 2022-03-03 12:54 | XCELERA ---
[id number]
--- NOTE | 2022-03-03 13:40 | Discharge Summary ---
Date of Service March 03, 2022 Admission HPI Per Admitting Provider The patient is a 66-year-old male with a past medical history including CAD, recent stent placement on 01/26/2022, recurrent angina status post CABG, prostate cancer, hyperlipidemia, hypertension, MRSA and nonsustained V. tach. He reports that his chest pain was not significantly improved by nitroglycerin sublingual's at the longterm, but did have improvement in the emergency department this evening. Principal Diagnosis Chest pain Discharge Exam GENERAL: A&Ox3. NAD. HEENT: PERRL, EOMI. Moist mucous membranes. NECK: No JVD. No lymphadenopathy. CHEST/LUNGS: CTAB A/P. No crackles, wheezes, rales, rhonchi. HEART: RRR. No m/g/r. No carotid bruits. ABDOMEN: NT/ND, soft. BS+ x4 EXTREMITIES: No cyanosis, no clubbing, no edema SKIN: Warm and dry. No rashes or lesions. PSYCHIATRIC: Euthymic affect, no SI, no pressured speech, no hallucinations NEUROLOGIC: No FND. CN II-XII grossly intact. Discharge Data Allergies Allergy/AdvReac Type Severity Reaction Status Date / Time Fish Containing Products AdvReac Intermediate VOMITING Verified 03/02/22 22:44 onion AdvReac Intermediate VOMITING Verified 03/02/22 22:44 tomato AdvReac Intermediate VOMITING Verified 03/02/22 22:44 Food AdvReac Intermediate ALLERGIC Uncoded 03/02/22 22:44 TO EMIGRANT GAP, CAUSES VOMITING Consultations 03/02/22 22:56 ED Decision to Admit Stat 03/03/22 02:35 Consult Cardiology Routine Ordered Studies 03/02/22 20:51 CT head/brain wo con Urgent Hospital Course (1) Chest pain: 66-year-old male with a past medical history including CAD, recent stent placement on 01/26/2022, recurrent angina status post CABG, prostate cancer, hyperlipidemia, hypertension, MRSA who presented due to chest pain concerning for possible cardiac involvement. Chest pain/CAD/hypertension/status post CABG/status post stented coronary artery - Patient's description of symptoms certainly concerning for angina but could have a component of anxiety as well -- did also report some epigastric GI discomfort after as well, which resolved with milk of magnesia - Cardiac enzymes, serialEKG's, cardiac rhythm monitoring all reassuring during admission - Had Echocardiogram showing normal LV function, no wall motion abnormalities, moderately dilated left atrium, mild mitral & aortic regurg, normal RV systolic pressure - Hospital course reassuring that even if this was anginal, there was no ischemia -- pain did resolve after morphine dose in ED - Cardiology consult in agreement and recommending continuing with current medical therapy w/o need for ischemic evaluation - If symptoms are persistent can consider stress testing as there may be some smaller coronary artery blockages that only become symptomatic with exertion and/or stress - Continue aspirin 81 mg daily, clopidogrel 75 mg daily, isosorbide mononitrate 60 mg daily, lisinopril 40 mg daily, metoprolol tartrate 12.5 mg p.o. daily and nitroglycerin sublingual as as needed Hyperlipidemia - Continue atorvastatin Dispo: Discharge back to correctional facility (2) Hypertension: (3) Hyperlipidemia: Total Time Total Time Spent Total Time Spent (In Minutes): <30 Discharge Plan Discharge Items Patient Disposition: [facility] Facility Reason For Visit: CHEST PAIN, HX OF STENTED CORONARIES Discharge Diagnosis: Chest pain Activity: Per Instructions section Non-emergency contact: Primary Care Provider and Continuous Improvement Lead Call non-emergency contact if: you have any medication questions, your symptoms worsen and your pain is not controlled Follow-up/Referrals: [place] COREA [Primary Care Provider] - Diet: Heart Healthy Fletcher Attending Provider Instructions: 66-year-old male with a past medical history including CAD, recent stent placement on 01/26/2022, recurrent angina status post CABG, prostate cancer, hyperlipidemia, hypertension, MRSA who presented due to chest pain concerning for possible cardiac involvement. Chest pain/CAD/hypertension/status post CABG/status post stented coronary artery - Patient's description of symptoms certainly concerning for angina but could have a component of anxiety as well -- did also report some epigastric GI discomfort after as well, which resolved with milk of magnesia - Cardiac enzymes, serialEKG's, cardiac rhythm monitoring all reassuring during admission - Had Echocardiogram showing normal LV function, no wall motion abnormalities, moderately dilated left atrium, mild mitral & aortic regurg, normal RV systolic pressure - Hospital course reassuring that even if this was anginal, there was no ischemia -- pain did resolve after morphine dose in ED - Cardiology consult in agreement and recommending continuing with current medical therapy w/o need for ischemic evaluation - If symptoms are persistent can consider stress testing as there may be some smaller coronary artery blockages that only become symptomatic with exertion and/or stress - Continue aspirin 81 mg daily, clopidogrel 75 mg daily, isosorbide mononitrate 60 mg daily, lisinopril 40 mg daily, metoprolol tartrate 12.5 mg p.o. daily and nitroglycerin sublingual as as needed Hyperlipidemia - Continue atorvastatin Dispo: Discharge back to correctional facility Pending Studies at Discharge: No Skilled Items Patient informed of condition?: Yes DNR: No Discharge Level of Care: Other Communicable Disease: No Discharge Prognosis: Stable Lines: None Urinary Catheter: No Medications and DC Order Prescriptions: Continued Alvesco 160 mcg/actuation HFA aerosol inhaler 1 puff inhalation BID aspirin 81 mg tablet,delayed release (DR/EC) 81 mg PO DAILY atorvastatin 40 mg tablet 40 mg PO QPM buspirone 10 mg tablet 20 mg PO HS clopidogrel 75 mg tablet 75 mg PO DAILY finasteride 5 mg tablet 5 mg PO DAILY lisinopril 40 mg tablet 40 mg PO DAILY nitroglycerin 0.4 mg tablet, sublingual 0.4 mg sublingual Q5M PRN (Reason: Chest Pain) Rx Instructions: do not exceed 3 doses per episode isosorbide mononitrate 60 mg Tablet Extended Release 24 Hr 60 mg PO DAILY metoprolol tartrate 25 mg Tablet 12.5 mg PO DAILY Admission Data Admit Date/Time: 03/03/22 00:57 Attending Provider: Michael Shah Admit Provider: Faizan Grimes Primary Care Provider: [place] COREA Other Providers: Jeffery Morales ; Faizan Grimes Other Interventions: Discharge Summary Assessment (RN) Last Done: 03/03/22 17:30 Supervising Physician Co-Signing Physician Notes I personally examined the patient and verified all fuchs points of history and exam, discussed case, and agree with decision making with Dr Fuenets Feeling better. Chest pain gone. Feels up to getting out of the hospital. Vitals noted, in general he is awake and alert pleasant no distress. HEENT normocephalic atraumatic mucous membranes moist. Breathing unlabored no accessory muscle use good effort. Skin shows no rashes no pallor or icterus. Musculoskeletal shows no rib tenderness or asymmetry to palpation. He does have mild epigastric tenderness without guarding rebound or rigidity. Chest pain - PA ruled out. symptoms lasted for hours. negative w/u despite hours of unremitting symptoms makes cardiac quite unlikely. ?GI given epigastric TTP safe/stable for discharge otherwise as above Resident Activity Tracking Resident Involvement: Resident Care Provided Care Provided: Adult Hospital Medicine
--- NOTE | 2022-03-03 18:37 | Billing Data ---
Date of Service March 03, 2022 Coding Level of Care Code 66425 OBS Care - Discharge
[2022-03-03] MEDS ORDERED: ATORVASTATIN 40 MG TAB PO SCH (21:00)
[2022-03-03] MEDS ORDERED: busPIRone 5 MG TAB PO SCH (21:00)
== END 2022-03-03 18:25 ==
LOC: 2S 20:40 → ED 20:40 → SUATTDRO 03-03 00:57 → 2S 03-03 02:29